=== PATIENT | male | born 2000 | race African-American/Black ===

== ENCOUNTER 2019-02-01 03:51 | Emergency (ER) | payer SELFPAY ==
--- NOTE | 2019-02-01 04:04 | Emergency Department Record ---
History of Present Illness - General Chief complaint: Abscess Stated complaint: ABSCESS Time Seen by Provider: 02/01/19 03:53 Source: Patient Mode of Arrival: Ambulatory Limitations: No limitations - History of Present Illness Initial comments: 18 yo male presents with asymmetric enlargement of the left breast for three years. He states the left breast has been non tender, softly enlarged constantly for that time without any significant changes. No weight loss. No fever. No redness. Over the last three years he has had nipple discharge on occasion. The last time was about one year ago. He states his last family doctor examined it about three years ago. No testing was performed at that time. It is not warm, red, or painful. No other swollen glands. MD complaint: Abscess/boil -: Year(s) (3) Location: Chest (Left breast) Severity: Mild Quality: Other (No pain) Consistency: Constant Improves with: None Worsens with: None Context: Other (Present for about three years) Associated symptoms: Denies other symptoms Treatments Prior to Arrival: None - Related Data Home Medications Medication Instructions Recorded Confirmed Last Taken No Home Med [NO HOME MEDS] 02/01/19 02/01/19 Unknown Allergies Allergy/AdvReac Type Severity Reaction Status Date / Time No Known Drug Allergies Allergy Verified 02/01/19 04:05 Review of Systems Constitutional: Denies: Chills, Fever, Weakness Eyes: Denies: Eye discharge ENT: Denies: Congestion, Throat pain Respiratory: Denies: Cough, Dyspnea Cardiovascular: Denies: Chest pain Endocrine: Denies: Fatigue Gastrointestinal: Denies: Abdominal pain, Diarrhea, Nausea, Vomiting Genitourinary: Denies: Dysuria, Frequency, Hematuria Musculoskeletal: Denies: Arthralgia, Back pain, Myalgia Skin: Reports: Other (abscess). Denies: Bruising, Change in color, Rash Neurological: Denies: Headache Psychiatric: Denies: Anxiety Hematological/Lymphatic: Denies: Easy bleeding, Easy bruising Physical Exam - General General Appearance: Alert, Oriented x3, Cooperative, No acute distress Limitations: No limitations - Head Head exam: Atraumatic - Eye Eye exam: Normal appearance, PERRL. negative: Conjunctival injection - ENT ENT exam: Normal exam Ear exam: Normal external inspection Nasal Exam: Normal inspection Mouth exam: Normal external inspection - Neck Neck exam: Normal inspection, Full ROM. negative: Lymphadenopathy - Respiratory Respiratory exam: Normal lung sounds bilaterally, Other (Soft mild swelling of the left breast area, the tissue is flesshy,rubbery soft, no discrete masses, no discharge, non tender, not warm). negative: Accessory muscle use, Chest wall tenderness, Decreased breath sounds, Prolonged expiratory, Respiratory distress, Rhonchi, Stridor, Wheezes - Cardiovascular Cardiovascular Exam: Regular rate, Normal rhythm, Normal heart sounds - Rectal Rectal exam: Deferred - exam: Deferred - Extremities Extremities exam: Normal inspection - Back Back exam: Denies: CVA tenderness (R), CVA tenderness (L) - Neurological Neurological exam: Alert, Oriented X3 - Psychiatric Psychiatric exam: Normal affect, Normal mood - Skin Skin exam: Dry, Intact, Normal color, Warm Course - Reevaluation(s) Reevaluation #1: 02/01/19 04:18 The patient presents with left breast tissue swelling for three years that is unchanged. The tissue is soft. It is not consistent with infection. No emergent imaging is required. The examination is very consistent with his history that this is not acute. I recommended a referral to both the [facility] and the [facility] surgery clinic for follow up. I recommended this follow up to ensure this is not a cancer. He will call the numbers provided in the morning. He understands the importance of the follow up even though this is chronic and unchanging. Disposition Disposition: Discharge Clinical Impression: Gynecomastia, male Disposition: Home, Self-Care Condition: (1) Good Instructions: Gynecomastia (ED) Additional Instructions: Call the number provided for a new family doctor tomorrow to assist you following up the long standing swelling of the left breast to ensure this is not a cancer You have been referred to the [facility] for the swelling of the breast tissue on the left Return if you have redness, drainage, fever, or any new concerns Referrals: Ozzie Osullivan [DOCTOR OF OSTEOPATH] - REGINA GALARZA [MEDICAL DOCTOR] - [facility] [Provider Group] Forms: Patient Portal Access Time of Disposition: 04:07 Quality - Quality Measures Quality Measures: N/A - Blood Pressure Screening Does Patient Have Any of the Following: No Blood Pressure Classification: Pre-Hypertensive BP Reading Systolic Measurement: 126 Diastolic Measurement: 86 Screening for High Blood Pressure: < Pre-Hypertensive BP, F/U Documented > [[id number]] Pre-Hypertensive Follow-up Interventions: Referral to alternative/primary care provider.
== END 2019-02-01 04:29 | disposition home or self-care (01) ==
LOC: ER 03:51
DX: N62 Hypertrophy of breast (principal)
CPT/HCPCS: 99282